=== PATIENT | male | born 1950 | race Caucasian/White ===

== ENCOUNTER 2016-12-06 08:04 | Day surgery (SDC) | payer MEDICARE, OTHER ==
[2016-12-01 21:28] LABS: HEMATOCRIT 47.4 % (40.0-51.0); HEMOGLOBIN 15.8 g/dL (13.6-17.8)
[2016-12-01 21:45] LABS: A/G RATIO 1.1 (0.7-1.9); ALBUMIN 3.7 G/DL (3.5-5.0); ALKALINE PHOSPHATASE 90 U/L (45-117); BUN (BLOOD UREA NITROGEN) 13 MG/DL (6-23); CALCIUM, SERUM 9.2 MG/DL (8.5-10.4); CHLORIDE, SERUM 104 MMOL/L (96-112); CO2 (CARBON DIOXIDE) 32 MMOL/L (24-34); CREATININE 0.88 MG/DL (0.70-1.30); GFR AFRICAN AMERICAN 102 ML/MIN (>=60); GFR NON AFRICAN AMERICAN 88 ML/MIN (>=60); GLOBULIN 3.4 G/DL (2.5-4.1); GLUCOSE, SERUM 86 MG/DL (60-99); POTASSIUM, SERUM 5.7 MMOL/L (3.5-5.3); SGOT(AST) 16 U/L (5-40); SGPT(ALT) 26 U/L (5-65); SODIUM, SERUM 141 MMOL/L (135-148); TOTAL BILIRUBIN 0.8 MG/DL (0-1.2); TOTAL PROTEIN 7.1 G/DL (6.0-8.5)
--- NOTE | ~2016-12-06 | OP ---
Record Of Operation [facility] [address] [place]. [address] NAME: MARIAM HERNANDEZ : 46 STATUS : [facility]#: [id number] AGE: 66 ADM/REG DATE : 12/06/16 MR#: [id number] REPORT SERV DATE: 12/06/16 DICTATED BY: CHAPITO ORTIZ DATE: 12/06/16 REPORT STATUS : Draft TRANSCRIBED BY: MODL DATE: 12/06/16 DATE OF PROCEDURE: 12/06/2016 PREOPERATIVE DIAGNOSIS: Chronic cholecystitis with cholelithiasis. POSTOPERATIVE DIAGNOSIS: Chronic cholecystitis with cholelithiasis. PROCEDURES: 1. Laparoscopic cholecystectomy. 2. Laparoscopic cholangiogram. SURGEON: Chapito Ortiz M.D. DESCRIPTION OF OPERATIVE PROCEDURE: The patient was brought to the operating suite, placed in supine position, underwent satisfactory general endotracheal anesthesia without incident. The skin of the abdomen was scrubbed, prepped and draped in the usual sterile fashion. 0.5% Marcaine with epinephrine was utilized as supplemental local anesthesia at all intended trocar sites. Initially, an infraumbilical incision was performed dissecting through the skin and subcutaneous tissue to the umbilical fascia. This was in turn grasped with the Andre clamp and elevated, and a disposable Veress insufflation needle was inserted through the umbilical fascia into the peritoneal cavity. Intraperitoneal tip location was ascertained using saline hanging drop method following which CO2 was insufflated for pressures of 15 mmHg throughout the case. After adequate insufflation, pressure was achieved, the Veress needle was removed, disposable bladed shielded 11-mm trocar was inserted through the umbilical fascia in to the peritoneal cavity following which a rigid forward-viewing 10-mm laparoscope was inserted. Visualization of the intraabdominal parietes revealed no evidence of injury from initial insufflation or puncture. Attention was turned to the upper abdomen, where an additional 5-mm trocar was placed to the right of falciform ligament. An additional 5-mm grasping instrument was inserted next to the umbilical trocar. The fundus and body of the gallbladder were grasped and elevated. The gallbladder was spontaneously ruptured upon grasping the fundus, but no stones were spilled. Irrigation and aspiration were performed as necessary throughout the case. Dissection of triangle of Calot was performed by initially dissecting free the periduodenal fibrofatty adhesions to the infundibular portion of the gallbladder. Dissection of the triangle of Calot was successful in identifying and skeletonizing the cystic duct, cystic duct and common duct junction. Cystic vasculature was controlled with multiple applications of the Weck 5-mm polymer clip system and divided. A single Weck clip was placed on the gallbladder side of the cystic duct and a small enterotomy was created in the cystic duct with free spillage of bile. Percutaneously introduced cholangio sheath was inserted under direct visualization through Record Of Operation [address] [address] NAME: MARIAM HERNANDEZ : 46 STATUS : [facility] [place] PAT#: [id number] AGE: 66 ADM/REG DATE : 12/06/16 MR#: [id number] REPORT SERV DATE: 12/06/16 DICTATED BY: CHAPITO ORTIZ DATE: 12/06/16 REPORT STATUS : Draft TRANSCRIBED BY: JOSE DATE: 12/06/16 the upper abdominal wall. A narrow cholangiocatheter was inserted down the sheath, flushed with saline, and inserted into the cystic duct. It was retained with a Weck polymer clip. Sequential fluoroscopic intraoperative cholangiography was performed revealing excellent visualization of both the intra and extrahepatic biliary ductal system. Specifically, there was no ductal dilatation or filling defects nor was there any major aberrant ductal anatomy. There was noted to be free spillage of dye into the duodenum. Retaining clip was removed as well as cholangiocatheter and the cystic duct was controlled with multiple applications of the Weck 5-mm polymer clip system and divided. Using spatula cautery dissection supplemented with irrigation and aspiration, the peritoneal attachments to the gallbladder and liver were divided. The gallbladder was removed from the subhepatic space. Hemostasis was assured. Next, the camera was switched to the 5-mm epigastric port. The gallbladder was grasped by its neck and placed in an Endo retrieval pouch. Trocars were removed, as well as Endo retrieval pouch with gallbladder wall intact. CO2 was allowed to egress in the peritoneal cavity. The umbilicus was closed with [id number] suture of 0 Vicryl. Subcutaneous tissue was closed at all sites with interrupted 4-0 Vicryl, running subcuticular stitch of 4-0 Vicryl for the skin. Dermabond skin adhesive was placed. The patient tolerated the procedure well, was returned to the PACU in stable condition. At the termination of the procedure, sponge, needle, lap, and instrument counts were correct x3. ESTIMATED BLOOD LOSS: 15 to 20 mL. WR/MODL Chapito Ortiz M.D. / [id number] CC: Kianna Grant M.D.
[~2016-12-06 08:04] MED LIST: BIOTIN5 MG PO; CALTRA600D PO; CELEBREX2 PO; COZ50 PO; CYMBALTA30 PO; FISH-EPA1000 MG PO; I20 PO; KLONO5 PO; MELATONIN1 M1 PO; MULTIPLE VIT PO; PAPAYA ENZYMES; PRILO PO; ULTRAM50 PO; VITA10 PO
[2016-12-06 09:18] LABS: BUN (BLOOD UREA NITROGEN) 17 MG/DL (6-23); CALCIUM, SERUM 9.6 MG/DL (8.5-10.4); CHLORIDE, SERUM 105 MMOL/L (96-112); CO2 (CARBON DIOXIDE) 29 MMOL/L (24-34); CREATININE 1.06 MG/DL (0.70-1.30); GFR AFRICAN AMERICAN 83 ML/MIN (>=60); GFR NON AFRICAN AMERICAN 72 ML/MIN (>=60); GLUCOSE, SERUM 107 MG/DL (60-99); POTASSIUM, SERUM 4.8 MMOL/L (3.5-5.3); SODIUM, SERUM 142 MMOL/L (135-148)
== END 2016-12-06 16:33 | disposition home or self-care (01) ==
LOC: SDC 08:04
PROVIDERS: Specialist
PROC: BF131ZZ Fluoroscopy of Gallbladder and Bile Ducts using Low Osmolar Contrast (ICD-10-PCS; 2016-12-06)
PROC: 0FT44ZZ Resection of Gallbladder, Percutaneous Endoscopic Approach (ICD-10-PCS; principal; 2016-12-06 09:00)
DX: K80.12 Calculus of gallbladder with acute and chronic cholecystitis without obstruction (principal); F41.9 Anxiety disorder, unspecified; M19.90 Unspecified osteoarthritis, unspecified site; F32.9 Major depressive disorder, single episode, unspecified; K21.9 Gastro-esophageal reflux disease without esophagitis; E78.5 Hyperlipidemia, unspecified; I10 Essential (primary) hypertension; Z98.890 Other specified postprocedural states; Z87.891 Personal history of nicotine dependence; Z79.899 Other long term (current) drug therapy; Z88.8 Allergy status to other drugs, medicaments and biological substances
CPT/HCPCS: 36415; 74300; 80048; 80053; 85014; 85018; 88304; 93005; A9270-GY; J0690; J1885; J2250; J2405; J2710; J3010; Q9967